=== PATIENT | male | born 1965 | race Caucasian/White ===

== ENCOUNTER 2019-05-16 16:00 | Emergency (ER) | payer MEDICAID ==
[~2019-05-16] VITALS: Ht 193 cm; Wt 113.6 kg
[2019-05-16 16:08] VITALS: Ht 193 cm; Wt 113.6 kg
[2019-05-16] MEDS ORDERED: ALBUTEROL SULF8.5 GM INH (16:11)
[2019-05-16] MEDS ORDERED: NEURONTIN800 MG PO (16:11)
[2019-05-16] MEDS ORDERED: DOXYCYCLINE HY100 M2 PO (16:14)
[2019-05-16] MEDS ORDERED: ULTRAM50 MG PO (19:34)
[2019-05-16 20:02] VITALS: BP 134/77
[2019-05-24] MEDS ORDERED: SINGULAIR10 MG PO (12:52)
[2019-05-24] MEDS ORDERED: ALBUTEROL2.5 MG/3 M INH (12:53)
== END 2019-05-16 20:02 | disposition home or self-care (01) ==
LOC: D.ER 16:00
DX: M75.101 Unspecified rotator cuff tear or rupture of right shoulder, not specified as traumatic (principal); S43.431A Superior glenoid labrum lesion of right shoulder, initial encounter; S42.291A Other displaced fracture of upper end of right humerus, initial encounter for closed fracture; X58.XXXA Exposure to other specified factors, initial encounter; M25.411 Effusion, right shoulder

== ENCOUNTER 2019-05-25 08:45 | Day surgery (SDC) | payer MEDICAID ==
[~2019-05-25] VITALS: Ht 193 cm; Wt 113.4 kg
[~2019-05-25 08:45] MED LIST: ALBUTEROL SULF8.5 GM INH; ALBUTEROL2.5 MG/3 M INH; DOXYCYCLINE HY100 M2 PO; NEURONTIN800 MG PO; SINGULAIR10 MG PO; ULTRAM50 MG PO
[2019-05-25 09:07] LABS: HEMATOCRIT 47.7 % (42.0-54.0); HEMOGLOBIN 15.7 g/dL (13.5-17.5); MCH 31.3 pg (26.0-34.0); MCHC 32.9 g/dL (31.0-37.0); MEAN PLATELET VOLUME 10.1 fL (7.4-10.4); RBC 5.02 10x6/uL (4.20-6.10); RDW 13.2 % (11.5-14.5); WBC 11.3 10x3/uL (4.8-10.8)
[2019-05-25 10:18] VITALS: BP 131/78; Ht 193 cm; Wt 113.4 kg
[2019-05-25] MEDS ORDERED: OXYCODONE HCL5 M1 PO (13:55)
[2019-05-25] MEDS ORDERED: VISTARIL50 MG PO (13:55)
[2019-05-25] MEDS ORDERED: TORADOL10 MG PO (13:56)
--- NOTE | 2019-05-25 14:28 | NUR ---
MEETS ANESTHESIA DISCHARGE CRITERIA
--- NOTE | 2019-05-25 17:03 | NUR ---
1515 MEDICATED PO PAIN.
--- NOTE | 2019-05-25 17:13 | NUR ---
1545 IV REMOVED AND PRESSURE HELD.
--- NOTE | 2019-05-25 17:14 | NUR ---
1530 INSTRUCTIONS AND RX GIVEN TO PT
--- NOTE | 2019-05-25 18:08 | OP ---
PATIENT NAME: CHRISTEN GUILLEN MEDICAL RECORD: [id number] :63 LOCATION:[facility] ADMISSION DATE: SURGEON: RENE AUGUSTIN DO DATE OF OPERATION: 05/25/2019 PROCEDURES PERFORMED: Right shoulder arthroscopy with Bankart repair, subacromial decompression, distal clavicle excision, rotator cuff repair and biceps tenodesis. PREOPERATIVE DIAGNOSES: Right shoulder instability, Bankart tear, partial rotator cuff tear, subacromial impingement, acromioclavicular joint arthritis and superior labral anterior-posterior tear. POSTOPERATIVE DIAGNOSES: Right shoulder instability, Bankart tear, partial rotator cuff tear, subacromial impingement, acromioclavicular joint arthritis and superior labral anterior-posterior tear. INDICATIONS: Mr. Guillen is a 54-year-old male who has had right shoulder instability for quite some time, it has been giving him a lot of pain and he is tired of dealing with it. He wanted something done surgically. MRI was done, which did show a partial tear of the supraspinatus as well as a Bankart lesion and a Hill-Sachs and SLAP tear, acromioclavicular joint arthritis and spur of the acromion. I informed him of the risks including recurrence of instability, infection, bleeding, damage to nerves and vessels, need for further surgery, shoulder stiffness. Especially due to the procedure we are going to do that he would need to be very careful, it would be a fine line between motion and stability, he was okay with that as well as continued pain and he signed the consent. SURGEON: Rene Augustin DO DESCRIPTION OF PROCEDURE: The patient received a block by anesthesia in the preoperative area, was taken to the operative suite, laid in the left lateral decubitus position with the right arm up. Given 900 mg of clindamycin. Time out was performed and everyone was in agreement with the correct side, site, patient and procedure. Right shoulder was then prepped and draped in sterile fashion. Once timeout was performed, the shoulder was marked out and the shoulder joint was injected with 60 mL of normal saline and then the posterior portal was established with an 11-blade scalpel. Trocar was then entered in the shoulder joint. The camera was then entered, seeing the Bankart lesion as well as a SLAP tear and the partial articular-sided rotator cuff tear. The subscapularis tendon was in good condition. The subacromial space was then entered and a subacromial decompression was done as well as a distal clavicle excision, opened up the AC joint to 7 mm. There was some bursa removed as well off of the rotator cuff on the bursal side. No tears were seen on the bursal side. I then went back into the joint and established an anterior portal, had been established previously as well as a lateral portal and another anterior portal for the repair. The hook was used to hook through the capsule and the labrum what was left and then a suture tape was ran through it at about the 3 o'clock position, it had a good bite and had good bumper. Once the PushLock was entered in and it was very stable due to the fact that we were doing that with rotator cuff repair used 1 anchor. Bicep tenotomy was done prior to this. The rotator cuff tear on the articular side was marked with an 18-gauge spinal needle in the knee. Lateral portal was lengthened with a 15 blade scalpel. Careful dissection was made down to the tear that had been marked and a OPERATIVE REPORT [id number] CHRISTEN GUILLEN Regenyangn patch was placed on it. This was then irrigated. Attention was then drawn to the anterior humerus where incision was made in the biceps tendon. The long head of the biceps tendon was pulled out through that and whipstitched and then placed with a 2.9 JuggerKnot and cinched down and then tied and a free needle was used to pass the suture back through it and tied back down. The excess tendon and suture were cut and held the biceps in good position. This was irrigated and closed with 2-0 Vicryl in an inverted interrupted fashion, 4-0 Monocryl ran on the skin, same with the open rotator cuff repair. The other 3 portals, posterior and two anterior portals were closed with 4-0 Monocryl in an inverted interrupted fashion. All were dressed with Dermabond, Telfa, Tegaderm. He was then awakened and taken to recovery in stable condition. BLOOD LOSS: Minimal. COMPLICATIONS: None. TRANSINT:[id number] Voice Confirmation ID: [id number] DOCUMENT ID: [id number] RENE AUGUSTIN DO at 1808 CC: [id number] DICTATION DATE: 05/25/19 1402 MACHINE II CUTTER: 05/25/19 1436 [facility] 05/25/19 [address] [place] [address]
--- NOTE | 2019-05-25 19:05 | NUR ---
1435 PT ARRIVED AWAKE RIGHT ARM BLOCKED AND NO SLING. PILLOW APPLIED TO RIGHT ARM UNTIL PT DRESSED AND THEN PTS OWN SLING APPLIED.
== END 2019-05-25 15:40 | disposition home or self-care (01) ==
LOC: D.OPS 08:45
PROVIDERS: Anesthesiology; ATTEND Orthopaedic Surgery
DX: M25.311 Other instability, right shoulder (principal); M75.101 Unspecified rotator cuff tear or rupture of right shoulder, not specified as traumatic; M75.41 Impingement syndrome of right shoulder; S43.431A Superior glenoid labrum lesion of right shoulder, initial encounter; M13.811 Other specified arthritis, right shoulder

== ENCOUNTER → 2019-09-28 12:55 | Outpatient (CLI) | payer MEDICAID ==
[2019-05-25 10:18] VITALS: BMI 30.5
[~2019-09-28 12:55] MED LIST changes: +OXYCODONE HCL5 M1 PO; +TORADOL10 MG PO; +VISTARIL50 MG PO
--- NOTE | 2019-09-28 14:43 | NUR ---
TIMEOUT PERFORMED USING TWO PATIENT IDENTIFIERS AT 1422, ALLERGIES INCLUDE TYLENOL
== END | disposition home or self-care (01) ==
LOC: D.RAD 12:55 → D.MRI 15:00
PROVIDERS: ATTEND Orthopaedic Surgery
DX: M75.122 Complete rotator cuff tear or rupture of left shoulder, not specified as traumatic (principal)

== ENCOUNTER 2020-01-21 08:39 | Day surgery (SDC) | payer MEDICAID ==
[2020-01-18 11:17] LABS: HEMATOCRIT 45.5 % (42.0-54.0); HEMOGLOBIN 14.9 g/dL (13.5-17.5); MCHC 32.7 g/dL (31.0-37.0); MCV 94.6 fL (80.0-100.0); MEAN PLATELET VOLUME 9.7 fL (7.4-10.4); RBC 4.81 10x6/uL (4.20-6.10); RDW 12.7 % (11.5-14.5); WBC 11.2 10x3/uL (4.8-10.8)
[~2020-01-21] VITALS: Ht 193 cm; Wt 113.4 kg
[~2020-01-21 08:39] MED LIST changes: +ADVIL200 MG PO
[2020-01-21 09:21] VITALS: BP 167/100; Ht 193 cm; Wt 113.4 kg
--- NOTE | 2020-01-21 11:13 | NUR ---
1112-BLOCK TO LEFT SHOULDER COMPLETED BY DR. DOWNS. MONITORS CONTINUE. O2 SAT 96% ON O2 AT 2L PER NC. RESP WITH EASE. REMAINS CONVERSANT THROUGHOUT PROCEDURE. CALL LIGHT IN REACH. DOOR OPEN.
[2020-01-21] MEDS ORDERED: DILAUDID4 MG PO (13:36)
[2020-01-21] MEDS ORDERED: VISTARIL50 MG PO (13:36)
--- NOTE | 2020-01-21 15:44 | NUR ---
1545 PT AWAKE AND ALERT AND REPORTS PAIN OF 8 ON 1-10 SCALE. IV DILAUDED PAST PEAK EFFECT. WILL RX WITH PO.
--- NOTE | 2020-01-22 09:12 | OP ---
PATIENT NAME: CHRISTEN GUILLEN MEDICAL RECORD: [id number] :63 LOCATION:[facility] ADMISSION DATE: SURGEON: RENE AUGUSTIN DO DATE OF OPERATION: 01/21/2020 PROCEDURE PERFORMED: Left shoulder arthroscopy with distal clavicle excision and subacromial decompression, labral debridement, biceps tenodesis, and rotator cuff repair with Regeneten. PREOPERATIVE DIAGNOSES: Left shoulder labral tear, SLAP tear, supraspinatus tear, subacromial impingement, and acromioclavicular joint arthritis. POSTOPERATIVE DIAGNOSIS: Left shoulder labral tear, SLAP tear, supraspinatus tear, subacromial impingement, and acromioclavicular joint arthritis. INDICATIONS: Mr. Guillen is a 54-year-old male well known to me, had an MRI and continues to have left shoulder pain. He had the right one done several months ago and the left one fixed as well and he is aware of the risks including infection, bleeding, damage to nerves and vessels, need for further surgery, continued pain, arthrofibrosis, and even and he signed the consent. SURGEON: Rene Augustin DO DESCRIPTION OF PROCEDURE: The patient was taken to the operative suite, laid in the right lateral decubitus position with left arm up. He was given a block by anesthesia in the preoperative area, given 900 mg of clindamycin preoperatively, sedated and LMA was placed. The left shoulder was prepped and draped in sterile fashion. Timeout was performed, everyone was in agreeance with the correct side, site, patient, and procedure. I then began by inserting an 18-gauge spinal needle into the joint and inflated with 60 mL normal saline and established portal with a #11 blade scalpel. Trocar was entered into the joint. I then established an anterior portal with a #11 blade scalpel and trocar entered in the joint. I then viewed the labral tear as well as the supraspinatus tear. The subscap was slightly torn, debrided, and the cartilage in good condition. There is nothing in the inferior gutter and the infraspinatus was in good shape. I then brought in a bur through the anterior portal and did a biceps tenotomy. I then went to subacromial space and established a lateral portal with 18-gauge spinal needle and #11 blade scalpel and brought in a burner and shaver and did a distal clavicle excision through the anterior portal, opening up the AC joint to approximately 7-mm. I then did an acromioplasty and taken out the spur of the acromion and then also debrided the tendon that was torn in the supraspinatus. We then opened the lateral portal with a #15 blade scalpel and careful dissection down to the tear and did a double row repair using suture tape and then putting a Regeneten patch on top of it, stapled it into place. We then addressed the anterior humerus. We did incision along that and retrieved the long head of the biceps tendon out to the incision and put a 2.9 JuggerLoc anchor in and put the biceps through the loop and cinched it down and then tied with free needle, went back through the bicep tendon and tied it down with the remaining suture. I then cut the excess suture and tendon, irrigated each side and then they were closed by Nick Perales, certified surgical mate first. The rotator cuff repair and the biceps tenodesis site was closed with 2-0 Vicryl in inverted interrupted fashion, 4-0 Monocryl ran on the skin as well as the open rotator cuff site. The portal sites were then closed with 4-0 OPERATIVE REPORT [id number] CHRISTEN GUILLEN Monocryl in inverted interrupted fashion. Dermabond glue was placed on all of them. He was then dressed with Telfa and Tegaderm and awakened and taken to recovery in stable condition. BLOOD LOSS: Minimal. COMPLICATIONS: None. TRANSINT:[id number] Voice Confirmation ID: [id number] DOCUMENT ID: [id number] RENE AUGUSTIN DO at 0912 CC: [id number] DICTATION DATE: 01/21/20 1631 PROFESSOR OF THEOLOGY: 01/22/20 0114 [facility] 01/21/20 [facility] [address] [place] [address]
== END 2020-01-21 16:50 | disposition home or self-care (01) ==
LOC: D.OPS 08:39 → D.PAN 10:30 → D.OPS 16:50
PROVIDERS: Anesthesiology; ATTEND Orthopaedic Surgery
DX: S43.432A Superior glenoid labrum lesion of left shoulder, initial encounter (principal); M75.122 Complete rotator cuff tear or rupture of left shoulder, not specified as traumatic; M25.812 Other specified joint disorders, left shoulder; M19.012 Primary osteoarthritis, left shoulder; J45.909 Unspecified asthma, uncomplicated; M70.62 Trochanteric bursitis, left hip; X58.XXXA Exposure to other specified factors, initial encounter; Z72.0 Tobacco use

== ENCOUNTER 2020-10-30 10:54 | Emergency (ER) | payer MEDICAID ==
[~2020-10-30] VITALS: Ht 193 cm; Wt 113.6 kg
[~2020-10-30 10:54] MED LIST changes: +DILAUDID4 MG PO
[2020-10-30 10:59] VITALS: BP 156/64; Ht 193 cm; Wt 113.6 kg
[2020-10-30] MEDS ORDERED: NEURONTIN800 MG PO (11:02)
[2020-10-30] MEDS ORDERED: PERCOCET 10-321 EAC1 PO (13:34)
[2020-10-30] MEDS ORDERED: ZANAFLEX6 MG PO (13:34)
== END 2020-10-30 13:59 | disposition home or self-care (01) ==
LOC: D.ER 10:54
DX: M50.30 Other cervical disc degeneration, unspecified cervical region (principal); J45.909 Unspecified asthma, uncomplicated; Z72.0 Tobacco use